=== PATIENT | male | born 1950 | race Caucasian/White ===

== ENCOUNTER → 2016-08-26 | Day surgery (SDC) | payer OTHER ==
[2016-08-26] VITALS (12 sets, daily range): BP systolic 121–147; BP diastolic 54–90
[~2016-08-26] VITALS: Ht 182.9 cm; Wt 85.3 kg
[~2016-08-26] MED LIST: ATORVASTATIN CA80 MG ORAL; Bupivacaine w/Epi 0.25% 30ml Vial INJ ONE; EPINEPHrine 1mg/1ml Amp ONE; Esmolol 100mg/10ml Inj ONE; LEVOTHYROXINE100 MCG ORAL; LOSARTAN POTASS50 MG ORAL; LR 1000ml ONE; Lidocaine 1% MPF 10mg/ml 5ml ONE; Metoclopramide 10mg/2ml Inj IVP PRN; Midazolam 2mg/2ml Inj ONE; Morphine Sulfate 2mg/ml Inj IVP PRN; NS Irrig 4000ml IRRIG ONE; Norco 5mg/325mg tab ORAL PRN; Propofol 10mg/ml 20ml IV ONE; Ropivacaine 5mg/ml Vial 20ml INJ ONE; Succinylcholine 20mg/ml 10ml vial ONE; ceFAZolin 1gm/50ml Premix 50 ML IV ONE; celeBREX 200mg Cap **SURGERY PATIENTS ONLY ORAL ONE; fentaNYL 100 mcg/2 mL IV ONE; fentaNYL 100 mcg/2 mL IV PRN; oxyCONTIN 20mg tab ORAL ONE
--- NOTE | 2016-08-26 09:43 | Pre-Procedure Note/Attestation ---
Pre-Procedure Note/Attestation Complete Prior to Procedure Planned Procedure: left Procedure Narrative: Shoulder arthroscopy arthroscopy, rc repair, sad Indications for Procedure Pre-Operative Diagnosis: left shulder rct, impingment Attestation I attest that I discussed the nature of the procedure; its benefits; risks and complications; and alternatives (and the risks and benefits of such alternatives ), prior to the procedure, with the patient (or the patient's legal sales representative supervisor). I attest that, if there was a reasonable possibility of needing a blood transfusion, the patient (or the patient's legal sales representative supervisor) was given the [facility] standardized written summary, pursuant to the Jose Crissy Blood Safety Act ([place] Health and Safety Code # 1645, as amended). I attest that I re-evaluated the patient just prior to the surgery and that there has been no change in the patient's H&P, except as documented below: AMBIKA SMITH Aug 26, 2016 09:43
--- NOTE | 2016-08-26 09:44 | Operative Note - PDOC ---
Operative Note Operative Note Pre-op Diagnosis: left shulder rct, impingment Procedure: left shoulder arthroscopy, rc repair Post-op Diagnosis: same as pre-op plus Operative Findings: consistent w/pre-op dx studies Anesthesia: general Specimen: none Complications: none Condition: stable Estimated Blood Loss: none Implant(s) used?: Yes AMBIKA SMITH Aug 26, 2016 09:44
--- NOTE | 2016-08-26 14:33 | Anethesia Preoperative Eval ---
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 Exam Physician Exam Last Vital Signs Date Time Temp Pulse Resp B/P Pulse Ox O2 Delivery O2 Flow Rate FiO2 08/26/16 14:14 79 18 140/88 97 Room Air 08/26/16 13:15 97.8 08/26/16 12:15 8.0 Constitutional: NAD Neurologic: CN 2-12 intact Cardiovascular: RRR Respiratory: CTA Gastrointestinal: S/NT/ND Airway Exam Mallampati Classification 3 Mallampati Score: Class III MO: fulllimited Neck: thick TMD: 1fb ROM: full Dentures: no lower, no upper Anesthesia Pre-op A/P Studies Pre-op Studies: EKG - SR Risk Assessment & Plan Plan: General and peripheral nerve block Status Change Before Surgery: No Pre-Antibiotics Drug: ancef Given Within 1 Hr of Incision: Yes - 66610 Time Given: 10:30 JOSE AVERY CRNA Aug 26, 2016 14:33
--- NOTE | 2016-08-26 14:35 | 48 Hour Post Anesthesia Eval ---
Post Anesthesia Evaluation Procedure: left shoulder rotator cuff repair Date of Evaluation: Aug 26, 2016 Time of Evaluation: 12:30 Blood Pressure Systolic: 148 0: 79 Pulse Rate: 78 O2 Sat by Pulse Oximetry: 99 Airway: patent Nausea: No Vomiting: No Hydration Status: adequate Cardiopulmonary Status: normal Mental Status/LOC: patient returned to baseline Post-Anesthesia Complications: none JOSE AVERY CRNA Aug 26, 2016 14:35
--- NOTE | 2016-08-26 14:36 | Immediate Post-Op Evaluation ---
Immediate Post-Op Evalulation Immediate Post-Op Evalulation Procedure: left shoulder rotator cuff repair Date of Evaluation: Aug 26, 2016 Time of Evaluation: 11:45 IV Fluids: 500 Blood Pressure Systolic: 131 Blood Pressure Diastolic: 65 Pulse Rate: 85 O2 Sat by Pulse Oximetry: 99 Temperature (Fahrenheit): 97.8 Nausea: No Vomiting: No Complications none Patient Status: awake, reacts, patent Hydration Status: adequate Drug: ancef Given Within 1 Hr of Incision: Yes Time Given: 10:30 JOSE AVERY CRNA Aug 26, 2016 14:36
--- NOTE | 2016-08-26 20:58 | Operative Note - Dictated ---
DATE OF OPERATION: 08/26/2016 PREOPERATIVE DIAGNOSIS: Left shoulder rotator cuff tear. POSTOPERATIVE DIAGNOSES: 1. Left shoulder rotator cuff tear. 2. Left shoulder biceps tendon tear. PROCEDURES: 1. Left shoulder extensive intra-articular debridement. 2. Left shoulder arthroscopic rotator cuff repair. 3. Left shoulder biceps tenodesis. 4. Subacromial decompression bursectomy. SURGEON: Anthony Castañeda M.D. ANESTHESIA: General/interscalene. INDICATION FOR PROCEDURE: The patient is a pleasant gentleman, who had significant injury to his left shoulder and subsequently diagnosed with a full-thickness rotator cuff tear. He failed conservative treatment and elected to undergo left shoulder arthroscopy with rotator cuff repair. Risks, limitations, expectations, and complications of the procedure were discussed in detail including no improvement in pain, need for future surgery, risk of anesthesia, medical complications, DVT, PE, and mortality risks. All questions addressed. DESCRIPTION OF PROCEDURE: An informed consent was obtained. The patient was taken to the operating room. The patient was then placed under general anesthesia and interscalene regional anesthetic for postoperative pain. The patient was then subsequently placed in the beach-chair position and padded all the extremities. The left shoulder was prepped and draped in a sterile manner. Time-out was performed. The portal sites were marked and injected with 0.25% Marcaine with epinephrine. At this point, inferolateral stab incision was then made. Trocar was introduced into the glenohumeral joint. The anterior labrum appeared to be intact along with the cartilage. There is a complete tear of the supraspinatus extending into the infraspinatus. There is also a tear of the biceps tendon. At this point, lateral working portal was established. A biceps tenodesis was performed. The area lateral along the greater tuberosity, where some soft tissue was cleared down the bone. At this point, mattress sutures were placed along the infraspinatus and supraspinatus. This were then tied down along with the lateral row anchor to further sense down the footprint. Once this was completed, a margin convergence stitch was placed in the posterior aspect of the infraspinatus where there was a tear that was difficult to visualize previously. At this point, the acromioplasty was completed from lateral to medial and then from posterior to anterior. Once this was done, the instruments removed. Portal sites were closed using 3-0 Monocryl sutures. Steri-Strips and a sterile dressing were applied. The patient was awoken and taken to recovery room with stable vital signs. ESTIMATED BLOOD LOSS: Minimal. COMPLICATIONS: None. SPECIMENS: None. IMPLANTS: Two Biomet anchors. Anthony Castañeda M.D. DR: TANNER JOB#: [id number] CC: SONIA
== END | disposition home or self-care (01) ==
LOC: SUR 07:24
DX: S46.012A Strain of muscle(s) and tendon(s) of the rotator cuff of left shoulder, initial encounter (principal); S46.112A Strain of muscle, fascia and tendon of long head of biceps, left arm, initial encounter; V43.52XA Car driver injured in collision with other type car in traffic accident, initial encounter; Y92.410 Unspecified street and highway as the place of occurrence of the external cause; Y99.9 Unspecified external cause status; I10 Essential (primary) hypertension; E03.9 Hypothyroidism, unspecified; E78.00 Pure hypercholesterolemia, unspecified; Z96.659 Presence of unspecified artificial knee joint; Z88.3 Allergy status to other anti-infective agents
CPT/HCPCS: 29823; 29826; 29827; 29828; C1713; J0171; J0330; J0690; J2250; J2270; J2405; J2704; J2795; J3010; J7120; 94003; 94150